=== PATIENT | female | born 1970 | race Caucasian/White ===

== ENCOUNTER 2018-06-26 12:01 | Emergency (ER) | payer BC, SELFPAY ==
[2018-06-26 12:06] VITALS: BP 114/51; PULSE 93; RESP 18; TEMP 36.7; O2SAT 99
--- NOTE | 2018-06-26 12:28 | W.ED.GENAD ---
Discharge Plan Disposition Patient Disposition: HOME Discharge Details Chief Complaint: Orthopedic Clinical Impression: Injury of knee, left, Effusion of knee joint, left Primary Care Provider: Unknown,Unknown ED Provider: Geraldo Abreu Home Meds and New Rx's Prescriptions: No Action No Known Home Meds RF: 0 Discharge Instructions Instructions: Swollen Knee Joint (ED) Additional Instructions: Please use knee brace and crutches. Use anti-inflammatory like ibuprofen or Aleve -dose according to label. If pain and inflammation persists this week, please follow-up with orthopedics. No sports or activities that could result in additional injury until cleared to do so by a healthcare provider. Return to the ER for any worsening or new concerning symptoms. Discharge Data Discharge Date/Time-TO BE ENTERED AT DEPARTURE: 06/26/18 13:56 Medical Decision Making 47yo f here with left knee injury related to fall while skiing yesterday. Patient has knee effusion and limited range of motion secondary to effusion. Exam is limited but I do not appreciate any ligamentous instability. Suspect knee sprain and likely meniscal tear. X-ray of the left knee reviewed and interpreted by me: Patient was advised to use crutches, weightbearing as tolerated, she has hinged knee brace that she will continue to use. She was instructed to follow-up with orthopedics if pain and swelling do not improve over the next 1 week. I explained her that she may need additional diagnostic testing if symptoms continue. She has an orthopedic provider that she plans to follow-up with should she need it. HPI General Mode of arrival: ambulatory. Date/Time Provider Initiated Documentation: 06/26/18 12:26. Limitations to Documentation: no limitations. Information obtained by: patient. HPI Narrative: 47-year-old female presents with chief complaint of left knee injury. Patient notes she was skiing yesterday and fell and twisted her knee. She is unclear as to mechanism during the fall. Knee hurt immediately. She did not experience any popping sensation. Overnight knee pain has persisted. She noticed that her knee was swollen today. No other injury. No associated numbness or tingling. She does have limitation to how far she can flex her knee since injury. Related Data Home Medications Medication Instructions Recorded Confirmed Unknown [No Known Home Meds] 06/26/18 06/26/18 Allergies Allergy/AdvReac Type Severity Reaction Status Date / Time ibuprofen AdvReac severe Unverified 06/26/18 12:13 stomach upset General Stated Complaint: Orthopedic CARLOS: 4 Review of Systems Musculoskeletal Reports as per HPI Neurologic Denies sensory deficit PFSH Social History Smoking and Tabacco status: Never Exam Cardio Rate: regular rate Rhythm: regular rhythm Neuro General: alert and awake Sensory Exam: no sensory deficits noted (Distal left lower extremity) Extrem Left lower extremity: hip/thigh Details: normal to inspection, knee Details: swelling (Effusion present), abnormal ROM Details: held in an abnormal fashion (Extension) and pain with active ROM (Flexion) and other (ant drawer neg); no unusual warmth and lower leg Details: normal to inspection Other: exam limited 2/2 effusion Course Vital Signs Temperature 36.7 C 06/26/18 12:06 Pulse 93 H 06/26/18 12:06 Respiratory Rate 18 06/26/18 12:06 Blood Pressure 114/51 L 06/26/18 12:06 Pulse Oximetry 99 06/26/18 12:06 Temperature 36.7 C 06/26/18 12:06 Temperature Source Temporal Artery Scan 06/26/18 12:06 Pulse 93 H 06/26/18 12:06 Respiratory Rate 18 06/26/18 12:06 Respiratory Effort Non-Labored 06/26/18 12:10 Blood Pressure 114/51 L 06/26/18 12:06 Blood Pressure Position Sitting 06/26/18 12:06 Pulse Oximetry 99 06/26/18 12:06 Oxygen Delivery Method Room Air 06/26/18 12:06 Oxygen Flow Rate 0 06/26/18 12:06 Pain Level 5 06/26/18 12:06
--- NOTE | 2018-06-26 13:07 | ED.GENADUL_ITS ---
Discharge Plan Disposition Patient Disposition: HOME Discharge Details Chief Complaint: Orthopedic Clinical Impression: Injury of knee, left, Effusion of knee joint, left Primary Care Provider: Unknown,Unknown ED Provider: Geraldo Abreu Home Meds and New Rx's Prescriptions: No Action No Known Home Meds RF: 0 Discharge Instructions Instructions: Swollen Knee Joint (ED) Additional Instructions: Please use knee brace and crutches. Use anti-inflammatory like ibuprofen or Aleve -dose according to label. If pain and inflammation persists this week, please follow-up with orthopedics. No sports or activities that could result in additional injury until cleared to do so by a healthcare provider. Return to the ER for any worsening or new concerning symptoms. Discharge Data Discharge Date/Time-TO BE ENTERED AT DEPARTURE: 06/26/18 13:56 Medical Decision Making 47yo f here with left knee injury related to fall while skiing yesterday. Patient has knee effusion and limited range of motion secondary to effusion. Exam is limited but I do not appreciate any ligamentous instability. Suspect knee sprain and likely meniscal tear. X-ray of the left knee reviewed and interpreted by me: Patient was advised to use crutches, weightbearing as tolerated, she has hinged knee brace that she will continue to use. She was instructed to follow-up with orthopedics if pain and swelling do not improve over the next 1 week. I explained her that she may need additional diagnostic testing if symptoms continue. She has an orthopedic provider that she plans to follow-up with should she need it. HPI General Mode of arrival: ambulatory . Date/Time Provider Initiated Documentation: 06/26/18 12:26 . Limitations to Documentation: no limitations . Information obtained by: patient . HPI Narrative: 47-year-old female presents with chief complaint of left knee injury. Patient notes she was skiing yesterday and fell and twisted her knee. She is unclear as to mechanism during the fall. Knee hurt immediately. She did not experience any popping sensation. Overnight knee pain has persisted. She noticed that her knee was swollen today. No other injury. No associated numbness or tingling. She does have limitation to how far she can flex her knee since injury. Related Data Home Medications Medication Instructions Recorded Confirmed Unknown [No Known Home Meds] 06/26/18 06/26/18 Allergies Allergy/AdvReac Type Severity Reaction Status Date / Time ibuprofen AdvReac severe Unverified 06/26/18 12:13 stomach upset General Stated Complaint: Orthopedic CARLOS: 4 Review of Systems Musculoskeletal Reports as per HPI Neurologic Denies sensory deficit PFSH Social History Smoking and Tabacco status: Never Exam Cardio Rate: regular rate Rhythm: regular rhythm Neuro General: alert and awake Sensory Exam: no sensory deficits noted (Distal left lower extremity) Extrem Left lower extremity: hip/thigh Details: normal to inspection, knee Details: swelling (Effusion present), abnormal ROM Details: held in an abnormal fashion (Extension) and pain with active ROM (Flexion) and other (ant drawer neg); no unusual warmth and lower leg Details: normal to inspection Other: exam limited 2/2 effusion Course Vital Signs Temperature 36.7 C 06/26/18 12:06 Pulse 93 H 06/26/18 12:06 Respiratory Rate 18 06/26/18 12:06 Blood Pressure 114/51 L 06/26/18 12:06 Pulse Oximetry 99 06/26/18 12:06 Temperature 36.7 C 06/26/18 12:06 Temperature Source Temporal Artery Scan 06/26/18 12:06 Pulse 93 H 06/26/18 12:06 Respiratory Rate 18 06/26/18 12:06 Respiratory Effort Non-Labored 06/26/18 12:10 Blood Pressure 114/51 L 06/26/18 12:06 Blood Pressure Position Sitting 06/26/18 12:06 Pulse Oximetry 99 06/26/18 12:06 Oxygen Delivery Method Room Air 06/26/18 12:06 Oxygen Flow Rate 0 06/26/18 12:06 Pain Level 5 06/26/18 12:06
--- NOTE | 2018-06-26 13:21 | DI.RAD_ITS ---
SYMPTOMS/DIAGNOSIS: PAIN S/P INJURY YESTERDAY LEFT KNEE: Three views. No acute fracture or dislocation is seen. There is a large suprapatellar joint effusion. Soft tissues are otherwise unremarkable. IMPRESSION: 1. No acute fracture or dislocation. 2. Large joint effusion. Followup as clinically appropriate. This can be seen with an occult fracture. If there is continued concern, a CT scan may be considered for further evaluation.
[2018-06-26 13:59] VITALS: BP 114/51; PULSE 93; RESP 18; TEMP 36.7; O2SAT 99
== END 2018-06-26 13:56 | disposition home or self-care (01) ==
LOC: ER 15:39
PROVIDERS: Emergency Provider Student in an Organized Health Care Education/Training Program
DX: S89.92XA Unspecified injury of left lower leg, initial encounter (principal); M25.462 Effusion, left knee; V00.321A Fall from snow-skis, initial encounter; Y93.23 Activity, snow (alpine) (downhill) skiing, snowboarding, sledding, tobogganing and snow tubing
CPT/HCPCS: 73562; 99283; E0114

== ENCOUNTER 2019-02-27 00:35 | Outpatient (CLI) | payer BC, SELFPAY ==
--- NOTE | 2019-02-27 07:50 | DI.MAMMO_ITS ---
EXAM: MG MAMMO SCREENING CLINICAL HISTORY: ANNUAL, SCREENING TECHNIQUE: Bilateral full field digital CC and MLO mammographic images were obtained with 3D tomosyn thesis and utilizing computer aided detection (CAD). COMPARISON: Available for comparison. FINDINGS: Masses/Architectural Distortion: None seen. Microcalcifications: No suspicious pleomorphic-type are seen. Skin Thickening/Nipple Retraction: None. IMPRESSION: 1. No significant interval change with no specific features of malignancy noted. 2. Unless there is more urgent need, screening mammography is recommended, as per [employer] guidelines. ACR BI-RAD Category- 1 Negative Breast Density - Category C - Heterogeneously dense The mammogram demonstrates the patient's breast tissue is dense. Dense breast tissue is very common a nd is not abnormal but dense breast tissue can make it harder to find cancer on a mammogram. Also, de nse breast tissue may increase their breast cancer risk. This information about the result of the [facility] mogram report was provided to the patient to raise their awareness. Use this report when you speak wi th the patient about their risks for breast cancer, which includes their family history. At that time , you may recommend for more screening tests (Ultrasound or MRI) as they might be useful based on the ir risk. A negative radiographic report should not delay biopsy if a dominant or clinically suspicious mass is present. Up to ten percent of cancers are not identified on mammography. A negative report may reinforce clinical impression. Adenosis and dense breasts may obscure an underlying neoplasm. False positive reports average 6 to 10%.
== END 2019-02-27 00:55 ==
PROVIDERS: PCP Obstetrics & Gynecology Gynecology; Visit Provider Obstetrics & Gynecology Gynecology
DX: Z12.31 Encounter for screening mammogram for malignant neoplasm of breast (principal)
CPT/HCPCS: 77063; 77067